=== PATIENT | male | born 1975 | race Caucasian/White ===

== ENCOUNTER 2019-08-19 17:41 | Inpatient (IN) | payer OTHER, MEDICAID, SELFPAY ==
[~2019-08-19] VITALS: Ht 154.9 cm; Wt 62.6 kg
--- NOTE | 2019-08-19 17:41 | NUR ---
[facility] TO ER BED 01
[2019-08-19 17:45] VITALS: BP 116/82
[2019-08-19] MEDS ORDERED: NACL 0.9% 1,000 ML IV SCH (17:57)
[2019-08-19] MEDS ORDERED: ONDANSETRON 4 MG/2 ML VIAL IVP ONE (18:00)
[2019-08-19] MEDS ORDERED: DEXTROSE 50% 50 ML SYR IVP ONE ×2 (18:00→23:46)
[2019-08-19] MEDS ORDERED: GLUCAGON 1 MG VIAL IVP ONE (18:00)
--- NOTE | 2019-08-19 18:00 | NUR ---
BIBA W C/O HYPOGLYCEMIA, FSBS 24 ON SCENE. PT WAS FOUND ALOC BY SISTER, D10 GIVEN IN FIELD. PER EMS, FSBS ANALYTICS CONSULTANT 131. FSBS UPON ARRIVAL TO ED IS 52. ERMD AWARE. PT A & O X4. 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 STATES HE HAS NOT EATEN TODAY BECAUSE HE GETS DIARRHEA RIGHT AFTER HE EATS. PT REPORTS CHRONIC NON BLOODY DIARRHEA X6-7 MONTHS, SO HE IS AFRAID TO EAT BECAUSE "IT GOES RIGHT THROUGH ME". ABDOMEN ROUND, SOFT AND TENDER TO PALPATION. LBM TODAY - DIARRHEA PER PT. BOWEL SOUNDS PRESENT X4. REPORTS WEIGHT LOSS OF APPROX. 30LBS OVER THE LAST 6 MONTHS. PT DENIES FEVER/COUGH/SOB. PT HAS HX OF HEART TRANSPLANT 10 YRS AGO AND IS ON MULTIPLE IMMUNOSUPPRESANTS AT HOME. PT IS TACHYCARDIC 134 AT THIS TIME, STATES HIS BASELINE HR IS ALWAYS BETWEEN 120-130 BPM. 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
--- NOTE | 2019-08-19 18:05 | NUR ---
ERMD AT BEDSIDE EVALUATING PT
[2019-08-19 18:23] LABS: BASOPHILS # (AUTO) 0.1 K/uL (0.00-0.22); BASOPHILS % (AUTO) 0.5 % (0.0-2.0); EOSINOPHILS % (AUTO) 0.1 % (0.0-4.0); HEMATOCRIT 32.7 % (36-52); HEMOGLOBIN 10.5 g/dL (12.0-18.0); LYMPHOCYTES # (AUTO) 0.9 K/uL (2.0-11.5); LYMPHOCYTES % (AUTO) 4.6 % (20.5-51.1); MEAN CORPUSCULAR HEMOGLOBIN 31 pg (27-31); MEAN CORPUSCULAR HGB CONC 32 g/dL (33-37); MEAN CORPUSCULAR VOLUME 97.4 fL (80-94); MONOCYTES # (AUTO) 1.4 K/uL (0.8-1.0); MONOCYTES % (AUTO) 7.1 % (1.7-9.3); NEUTROPHILS # (AUTO) 17.2 K/uL (1.8-7.7); NEUTROPHILS % (AUTO) 87.7 % (42.2-75.2); PLATELET COUNT (AUTO) 209 K/uL (140-450); RED BLOOD CELL COUNT(AUTO) 3.35 MIL/uL (4.20-6.10); RED CELL DISTRIBUTION WIDTH 18.2 % (11.6-13.7); WHITE BLOOD COUNT (AUTO) 19.6 K/uL (4.8-10.8)
[2019-08-19 18:48] LABS: ANION GAP 15.4 (8-16); CARBON DIOXIDE 25.2 mmol/L (21-32); FREE T4 (FREE THYROXINE) 1.47 ng/dL (0.76-1.46); POTASSIUM 3.6 mmol/L (3.5-5.1); THYROID STIMULATING HORMONE 3.48 uIU/mL (0.34-3.74); TOTAL BILIRUBIN 0.8 mg/dL (0.0-1.0)
--- NOTE | 2019-08-19 18:51 | NUR ---
PT PROVIDED WITH SANDWICH, ENCOURAGED HIM TO TRY TO EAT
[2019-08-19] MEDS ORDERED: NACL 0.9% 1,000 ML IV ONE (19:00)
[2019-08-19] MEDS ORDERED: cefTRIAXone 1,000 MG VIAL ONE (19:07)
[2019-08-19] MEDS ORDERED: MORPHINE SULFATE 4 MG/ML SYR IVP ONE (19:20)
--- NOTE | 2019-08-19 19:20 | NUR ---
REPORT GIVEN BY JAYNA SCOTT, TRANSFER OF CARE AT THIS TIME.
--- NOTE | 2019-08-19 19:20 | NUR ---
pt rq 10 mg norco because he typically takes it at home prn for back pain, informed dr. lindsey and he will order him morphine IV. pt aware and ok with this.
--- NOTE | 2019-08-19 19:21 | NUR ---
pt unable to urinate at this time
--- NOTE | 2019-08-19 19:40 | NUR ---
LAB CALLED FOR PT CRITICAL RESULTS-TROPONIN- 0.110. DR INIGUEZ MADE AWARE AND EAN SCOTT
[2019-08-19] MEDS: DEXTROSE 10% 1,000 ML IV SCH ×3 (19:47→22:44)
--- NOTE | 2019-08-19 19:48 | NUR ---
pt taken to ct via nayeli
--- NOTE | 2019-08-19 20:00 | NUR ---
PT RESTING IN BED. EQUAL CHEST RISE AND FALL. PT STATES HIS PAIN IS 7/10. ERMD MADE AWARE. SAFETY MEASURES IN PLACE.
--- NOTE | 2019-08-19 20:40 | NUR ---
ERMD GAVE VERBAL ORDERS TO CHANGE D10 75/HR TO BOLUS AFTER LAST ACCU CHECK WAS 57.
--- NOTE | 2019-08-19 20:41 | NUR ---
STILL UNABLE TO GET URINE FROM PT AT THIS TIME. FRANKLIN MADE AWARE
[2019-08-19] MEDS ORDERED: FLUC200T PO (20:55)
[2019-08-19] MEDS ORDERED: ZYL300 PO (20:56)
[2019-08-19] MEDS ORDERED: HYDR-5092 PO (20:57)
[2019-08-19] MEDS ORDERED: PRO.5 PO (20:58)
[2019-08-19] MEDS ORDERED: FURO-572 PO (21:00)
--- NOTE | 2019-08-19 21:00 | NUR ---
SPOKE WITH PTS SISTER TUSHAR TO GET MED REC.
[2019-08-19] MEDS ORDERED: PRED5TAB7 PO (21:01)
[2019-08-19] MEDS ORDERED: MAGN400T7 PO (21:02)
[2019-08-19] MEDS ORDERED: METF1000 PO (21:03)
[2019-08-19] MEDS ORDERED: AMLO5TAB PO (21:04)
[2019-08-19] MEDS ORDERED: GLIP10TA12 PO (21:05)
[2019-08-19] MEDS ORDERED: FAMO-90 PO (21:06)
[2019-08-19] MEDS ORDERED: CEL250 PO (21:06)
[2019-08-19] MEDS ORDERED: INSU-1331 SC (21:10)
[2019-08-19] MEDS ORDERED: INSU100I28 SQ (21:10)
--- NOTE | 2019-08-19 21:15 | NUR ---
LAB AT BEDSIDE
--- NOTE | 2019-08-19 21:16 | NUR ---
SPOKE WITH ARELIS FROM THE LAB. PT MG IS 0.8. NOTIFY MD CRUZ AND AWARE.PER MD SHE WILL PLACE THE ORDER.
--- NOTE | 2019-08-19 21:46 | NUR ---
URINE COLLECTED, DIPPED AND SENT TO LAB
[2019-08-19 22:05] LABS: APPEARANCE,URINE CLEAR (CLEAR); BILIRUBIN,URINE NEGATIVE (NEGATIVE); BLOOD, URINE NEGATIVE (NEGATIVE); COLOR,URINE YELLOW (YELLOW); LEUKOCYTE ESTERASE ,URINE NEGATIVE (NEGATIVE); NITRITE, URINE NEGATIVE (NEGATIVE); PH,URINE 6.5 (5.0-9.0); UGLUCOSE TRACE (NEGATIVE)
[2019-08-19] MEDS ORDERED: ONDANSETRON 4 MG/2 ML VIAL IVP PRN (22:05)
[2019-08-19] MEDS ORDERED: ACETAMINOPHEN 325 MG TAB PO PRN (22:05)
--- NOTE | 2019-08-19 22:30 | NUR ---
Patient will be admitted to care of [facility]. Admited to TELE. Will go to room 112B. Belongings list completed. Report to SANTIAGO MARSH RN.
[2019-08-19 22:32] LABS: BARBITURATE, URINE NEGATIVE ng/ml (NEG <=200); BENZODIAZEPINE, URINE NEGATIVE ng/mL (NEG <=200); CANNABINOID, URINE POSITIVE ng/mL (NEG <=50); COCAINE, URINE NEGATIVE ng/mL (NEG <=300); OPIATE, URINE POSITIVE ng/mL (NEG <=2000)
[2019-08-19 22:33] LABS: PHENCYCLIDINE SCREEN,URINE NEGATIVE ng/mL (NEG <=25)
[2019-08-19] MEDS: BLOOD GLUCOSE MONITORING 1 DEV DEV FS SCH (22:40)
--- NOTE | 2019-08-19 22:45 | NUR ---
ADMITTED A PATIENT FORM ER VIA GURNEY. PATIENT IS ASLEEP BUT AROUSABLE. DENIES ANY PAIN,CHEST PAIN AND SOB AT THIS TIME. ST ON CARDIAC WITH PAC, HR 110. PT BLOOD SUGAR BEFORE TRANSFER IS 57 PER ER NURSE AND PT WAS GIVEN D50. WILL RE CHECKED PT BLOOD SUGAR AFTER 1 HOUR. STARTED THE IVF ORDERED D10 @ 75 CC/HR. NO SIGN AND SYMPTOMS OF DISTRESS NOTED AT THIS TIME. ORIENTED THE PT TO THE ROOM SETTING AND USE OF CALL LIGHT SYSTEM.CALL LIGHT WITHIN REACH. WILL CONTINUE POC AND MONITORING.
[2019-08-19 22:51] LABS: CHOL/HDL RATIO 2.2 (1-4.5); PHOSPHORUS 3.5 mg/dL (2.5-4.9)
[2019-08-19 22:52] LABS: PROTHROMBIN TIME 14.9 secs (10.8-13.4)
[2019-08-19] MEDS ORDERED: AZITHROMYCIN 500 MG in DEXTROSE 5% 250 ML IV SCH (22:55)
[2019-08-19] MEDS ORDERED: ALLOPURINOL 300 MG TAB PO SCH (22:55)
[2019-08-19 23:06] LABS: MAGNESIUM 0.8 mg/dL (1.8-2.4)
[2019-08-19] MEDS ORDERED: MAG SULF 2000 MG/WATER PREMIX 100 ML IV SCH (23:15)
[2019-08-19] MEDS ORDERED: GLUCAGON 1 MG VIAL IVP PRN (23:50)
--- NOTE | 2019-08-19 23:55 | NUR ---
CHECKED PT BS @ 3828 ITS 57. PT AWAKE, ALERT AND RESPONSIVE. PUSH D50 ORDERED.
[2019-08-20] VITALS (13 sets, daily range): BP systolic 107–137; BP diastolic 69–87
[2019-08-20] MEDS: DEXTROSE 50% 50 ML SYR IVP PRN ×2 (00:15→01:52)
--- NOTE | 2019-08-20 00:15 | NUR ---
TRANSFERRED THE PT TO ICU PER ACLS PROTOCOL AND REPORT GIVEN TO THE RECEIVING RN ANIKET REGARDING THE PATIENT FOR CONTINUITY OF CARE. ALL BELONGINGS RETURNED TO THE PT. LEFT THE PT IN ICU IN STABLE CONDITION A/A/OX4. SIGNING OFF.
--- NOTE | 2019-08-20 00:16 | NUR ---
REPORT RECEIVED FROM TELEMETRY NURSE AT BEDSIDE FROM TRANSFER. PT IN STABLE CONDITION. AAOX4. INTRODUCED SELF TO PT. NO COMPLAINTS OF PAIN. NO SOB ON RA. AFEBRILE@98.3. PT IS AMBULATORY. PT IS FALL RISK BUT AMBULATORY. STANDBY ASSIST. IV SITE L AC 20G SL PATENT AND INTACT. R FA 20G RUNNING D10@90ML/HR PATENT AND INTACT. SKIN WARM, DRY, AND INTACT WITH NO OPEN WOUNDS. BED LOCKED IN LOW POSITION. CALL HERNANDEZ WITHIN REACH. SAFETY PRECAUTION IN PLACE. ALL NEEDS MET AT THIS TIME.
[2019-08-20] MEDS: BLOOD GLUCOSE MONITORING 1 DEV DEV FS SCH ×24 (00:29→22:40)
[2019-08-20] MEDS ORDERED: AZITHROMYCIN 500 MG INJ VIAL IV ONE (00:31)
--- NOTE | 2019-08-20 00:38 | NUR ---
EDMONDITHMYLETICIA HUNG AND RUNNING.
--- NOTE | 2019-08-20 00:42 | NUR ---
BS 91. NO S/S OF HYPOGLYCEMIA.
--- NOTE | 2019-08-20 01:47 | NUR ---
BS 55. D50 GIVEN IVP.
--- NOTE | 2019-08-20 02:45 | NUR ---
BS 112. NO S/S OF HYPOGLYCEMIA.
--- NOTE | 2019-08-20 03:02 | NUR ---
MAG BRADFORD HUNG AND RUNNING BAG 1 OF 2.
--- NOTE | 2019-08-20 03:52 | NUR ---
BS 65. APPLEJUICE WITH SUGAR GIVEN.
--- NOTE | 2019-08-20 04:42 | NUR ---
BS 67. APPLEJUICE WITH SUGAR GIVEN.
[2019-08-20] MEDS ORDERED: MAG SULF 2000 MG/WATER PREMIX 50 ML IV ONE (05:24)
[2019-08-20 05:58] LABS: BASOPHILS # (AUTO) 0.1 K/uL (0.00-0.22); BASOPHILS % (AUTO) 0.7 % (0.0-2.0); EOSINOPHILS # (AUTO) 0.1 K/uL (0-0.4); EOSINOPHILS % (AUTO) 1.1 % (0.0-4.0); HEMATOCRIT 29.8 % (36-52); HEMOGLOBIN 9.8 g/dL (12.0-18.0); LYMPHOCYTES # (AUTO) 1.1 K/uL (2.0-11.5); LYMPHOCYTES % (AUTO) 8.7 % (20.5-51.1); MEAN CORPUSCULAR HEMOGLOBIN 32 pg (27-31); MEAN CORPUSCULAR HGB CONC 33 g/dL (33-37); MONOCYTES # (AUTO) 1.2 K/uL (0.8-1.0); MONOCYTES % (AUTO) 9.1 % (1.7-9.3); NEUTROPHILS # (AUTO) 10.4 K/uL (1.8-7.7); NEUTROPHILS % (AUTO) 80.4 % (42.2-75.2); PLATELET COUNT (AUTO) 185 K/uL (140-450); RED BLOOD CELL COUNT(AUTO) 3.08 MIL/uL (4.20-6.10); RED CELL DISTRIBUTION WIDTH 18.1 % (11.6-13.7); WHITE BLOOD COUNT (AUTO) 12.9 K/uL (4.8-10.8)
--- NOTE | 2019-08-20 06:00 | NUR ---
BS 163. NO S/S OF HYPOGLYCEMIA.
--- NOTE | 2019-08-20 06:40 | NUR ---
BS 124. NO S/S OF HYPOGLYCEMIA.
[2019-08-20 07:03] LABS: ANION GAP 13.4 (8-16); CARBON DIOXIDE 23.4 mmol/L (21-32); CREATININE 0.8 mg/dL (0.6-1.3)
[2019-08-20 07:05] LABS: POTASSIUM 2.8 mmol/L (3.5-5.1)
--- NOTE | 2019-08-20 07:16 | NUR ---
REPORT GIVEN TO AM NURSE AT BEDSIDE. PT IN STABLE CONDITION.
[2019-08-20 07:17] LABS: MAGNESIUM 1.5 mg/dL (1.8-2.4); PHOSPHORUS 2.8 mg/dL (2.5-4.9)
--- NOTE | 2019-08-20 07:25 | NUR ---
RECEIVED REPORT FROM NIGHT NURSE. PT IN STABLE CONDITION, AAOX4, RESPIRATIONS EVEN AND UNLABORED ON ROOM AIR. DENIES PAIN. SKIN INTACT. L AC PATENT AND ASYMPTOMATIC SALINE LOCKED AND R FA 20G PATENT AND ASYMPTOMATIC INFUSING PER ORDER. K+ 2.8 AND MAG 1.5 WILL REPLENISH. STANDARD ISOLATION. SAFETY MEASURES IN PLACE. CALL LIGHT WITHIN REACH. WILL CONTINUE TO MONITOR.
--- NOTE | 2019-08-20 08:35 | NUR ---
DISCHARGE PLANNING: RECEIVED AN ORDER FOR HIGHER LEVEL OF TRANSFER TO [facility] FOR CONTINUITY OF CARE. REFERRAL SENT TO [facility]. WILL FOLLOW UP. Addendum: 08/20/19 at 1040 by Maria Amezcua CM CONTACTED [facility] AT [phone], ABLE TO SPEAK TO IRASEMA. REQUESTED TO BE TRANSFERRED TO [facility]. SHE STATED MELBA IS ON THE PHONE AT THE MOMENT. PROVIDED HER WITH THE MY CONTACT INFO TO HAVE MELBA CALL ME BACK. Addendum: 08/20/19 at 1104 by Maria Amezcua CM RECEIVED A CALL BACK FROM MELBA OF [facility] REGARDING TRANSFER REQUEST. PROVIDED HER WITH ALL THE INFORMATION NEEDED. PROVIDED HER WITH THE CALL PHONE FOR DOC TO DOC CALLS. SHE STATED IT HAS TO BE THE ATTENDING ONLY FOR ICU TRANSFER. PROVIDED HER WITH DR. DEL VALLE'S CONTACT INFO. SHE ALSO STATED THAT ALL [facility] TRANSFER SHOULD HAVE A COVID TESTING. SHE ALSO HAVE SOME COVID SCREENING QUESTIONS LIKE IF PATIENT HAVE WORKED IN A [facility] OR SNF, INFORMED HER THAT I WILL INQUIRE ON THIS AND WILL GIVE HER A CALL BACK. CHARGE NURSE MADE AWARE AND SHE STATED NO. CONTACTED [facility], ABLE TO SPEAK TO VINH. SHE STATED MELBA JUST STPPED OUT FOR BATHROOM BREAK BUT WILL RELAY THE MESSAGE. Addendum: 08/20/19 at 1342 by Maria Amezcua THIS IS A 44 Y/O MALE PATIENT FROM HOME, WHO WAS BIBA DUE TO ALTERED MENTAL STATUS. PAST MEDICAL HISTORY INCLUDE CHF S/P HEART TRANSPLANT 2009 AT [facility]. INITIAL DIAGNOSIS OF HYPOGLYCEMIA. CURRENT LABS INCLUDE WBC 12.9, H/H 9.8/29.8, NA/K 134/2.8, GLU ON ADMISSION 185, 56 AND LATEST 88. ON ROCEPHIN, FLUCONAZOLE, AZITHROMYCIN. ON ROOM AIR, O2 SAT 96. COVID TEST PENDING. URINE AND BLOOD CS PENDING. GI, ID, CARDIO AND PULMO/CRITICAL CARE CONSULTS IN PLACE. DC PLAN TO [facility] FOR CONTINUITY OF CARE. RECEIVED A CALL FROM ALEXIS OF [facility] TRANSFER CENTER, STATING THAT DR. MCCLELLAND IS ABLE TO ACCEPT THE PATIENT PENDING COVID TEST RESULTS. DR RAYMUNDO MADE AWARE.
[2019-08-20] MEDS ORDERED: DOCUSATE SODIUM 100 MG GELCAP PO SCH (09:00)
[2019-08-20] MEDS ORDERED: FLUCONAZOLE 100 MG TAB PO SCH ×2 (09:00)
[2019-08-20] MEDS ORDERED: predniSONE 5 MG TAB PO SCH (09:00)
[2019-08-20] MEDS ORDERED: amLODIPine 5 MG TAB PO SCH (09:00)
[2019-08-20] MEDS: MYCOPHENOLATE 250 MG CAP PO SCH ×2 (09:00→21:00)
[2019-08-20] MEDS ORDERED: TACROLIMUS 0.5 MG CAP PO SCH (09:00)
--- NOTE | 2019-08-20 09:13 | NUR ---
PATIENT HAS BEEN SCREENED AND CATEGORIZED HIGH NUTRITION RISK. PATIENT WILL BE SEEN WITHIN 1-2 DAYS OF ADMISSION. 08/20/19-08/21/[address]
--- NOTE | 2019-08-20 09:18 | NUR ---
MEDICATIONS ADMINISTERED PER ORDER, PT TOLERATED WELL. DENIES PAIN. WILL CONTINUE TO MONITOR.
[2019-08-20] MEDS: FAMOTIDINE 20 MG TAB PO SCH ×2 (09:19→20:12)
[2019-08-20] MEDS: MAGNESIUM OXIDE 400 MG TAB PO SCH ×2 (09:20→20:12)
--- NOTE | 2019-08-20 10:38 | NUR ---
BLOOD SUGAR 66, APPLE JUICE WITH 2 PACKS OF SUGAR GIVEN. WILL REASSESS IN 1 HOUR.
[2019-08-20] MEDS ORDERED: MAG SULF 2000 MG/WATER PREMIX 100 ML IV SCH (11:00)
[2019-08-20] MEDS ORDERED: POTASSIUM CHLORIDE 10 MEQ TABER PO SCH (11:00)
[2019-08-20] MEDS ORDERED: POTASSIUM CHLORIDE 40 MEQ, LIDOCAINE MPF 1% 25 MG in NACL 0.9% 250 ML IV SCH ×2 (11:00→16:00)
[2019-08-20] MEDS ORDERED: FUROSEMIDE 40 MG/4 ML VIAL IVP SCH (11:00)
[2019-08-20] MEDS: DEXTROSE 10% 1,000 ML IV SCH (11:09)
[2019-08-20] MEDS: HYDROcodone/APAP 7.5/325 MG 1 TAB PO PRN ×2 (11:44→21:39)
--- NOTE | 2019-08-20 11:50 | NUR ---
ECHOCARDIOGRAM PENDING DUE TO R/O COVID.
--- NOTE | 2019-08-20 12:52 | NUR ---
BLOOD GLUCOSE 119, PT IN STABLE CONDITION, NO RESPIRATORY DISTRESS NOTED. PT STATES PAIN HAS SUBSIDED. DENIES HAVING APPETITE. WILL CONTINUE TO MONITOR.
--- NOTE | 2019-08-20 13:42 | NUR ---
DEPUTY HEAD NOTE: Basic Screen: Yes High Risk DC Screen [place]: N/A Prior ADL Independent Current Home Health Name/Tel: N/A Current DME/02 Name/Tel: N/A Current Hospice Name/Tel: N/A Current Dialysis Name/Tel: N/A Advance Directive No Physician Orders for Life Sustaining Treatment Form No Patient/Family Have Educational Needs No Discipline: Case Mgt/Social Svcs Tentative Discharge Plan/Destination: No Needs Identified Will require assistance post discharge: No Referred to [facility] Recessed Vat: No Tentative Discharge Plan Summary: PATIENT IS A 44-YEAR-OLD MALE ADMITTED FOR HYPOGLYCEMIA. PATIENT HAS PMHX OF CHF. PATIENT WAS ADMITTED FROM HOME. DUE TO MEDICAL CONDITION, SW WAS UNABLE TO MEET WITH PATIENT AT BEDSIDE. SW CONSULTED WITH PHYSICIAN WHO STATED THAT THERE WERE NO SOCIAL ISSUES PRESENT AT THIS TIME. PHYSICIAN STATED THAT PATIENT'S SISTER HAS BEEN IN CONTACT WITH HOSPITAL BUT HAS NOT PROVIDED HER CONTACT INFORMATION. TENTATIVE DISCHARGE PLAN IS FOR PATIENT TO RETURN HOME. NO FURTHER NEEDS IDENTIFIED. Signature: ROSA PAGE Date: Aug 20, 2019 Time: 13:39
--- NOTE | 2019-08-20 16:12 | NUR ---
08/20/19 RD INITIAL ASSESSMENT COMPLETED PLEASE REFER TO NUTRITION ASSESSMENT UNDER CARE ACTIVITY FOR ESTIMATED NUTRITIONAL NEEDS. 1. CONTINUE CCHO 60GM DIET TOLERATED 2. RECOMMEND GLUCERNA TID 3. ENCOURAGE TO INCREASE PO INTAKE 4. RD TO FOLLOW-UP 2-3 DAYS, HIGH RISK WEI MONSON, RD
--- NOTE | 2019-08-20 16:13 | NUR ---
TEMP 97.9, PT DENIES PAIN. RESPIRATIONS EVEN AND UNLABORED ON ROOM AIR. WILL CONTINUE TO MONITOR CLOSELY.
--- NOTE | 2019-08-20 17:48 | NUR ---
RECEIVED CALL FROM LAB, PT COVID (-)
--- NOTE | 2019-08-20 18:31 | NUR ---
Called [facility] transfer center to report negative COVID and request a bed. Spoke to Tracy will look into the record.
--- NOTE | 2019-08-20 18:40 | NUR ---
BLOOD SUGAR CHECKED 193. NO DISTRESS NOTED. RESPIRATIONS EVEN AND UNLABORED ON ROOM AIR. SAFETY MEASURES IN PLACE. WILL CONTINUE TO MONITOR.
[2019-08-20] MEDS ORDERED: [UNRECOGNIZED DRUG - CODE] IV (18:47)
[2019-08-20] MEDS ORDERED: HEPA500056 SUBQ (18:47)
[2019-08-20] MEDS ORDERED: GLUC1VIA IVP (18:47)
[2019-08-20] MEDS ORDERED: GLUC-805 FS (18:47)
[2019-08-20] MEDS ORDERED: FLUC100T1 PO (18:47)
[2019-08-20] MEDS ORDERED: [UNRECOGNIZED DRUG - CODE] IV (18:47)
[2019-08-20] MEDS ORDERED: ROC2I IJ (18:47)
[2019-08-20] MEDS ORDERED: D50SYR IVP (18:47)
--- NOTE | 2019-08-20 19:25 | NUR ---
REPORT GIVEN TO NIGHT NURSE FOR CONTINUITY OF CARE.
--- NOTE | 2019-08-20 19:30 | NUR ---
RECEIVED PT FROM JUDIT RN, PT ON RM AIR A&OX4, PT COMPLAINS OF MILD PAIN BUT SAYS ITS TOLERABLE AT THIS TIME, LUNG SOUNDS CLEAR, S1 AND S2 HEART SOUNDS HEARD, BOWEL SOUNDS ACTIVE, PULSES PALPABLE UPPER AND LOWER EXTREMITIES, NO SIGNS OF DISTRESS OBSERVED, PT RESTING IN BED WATCHING TV, SAFETY PROTOCOL IN PLACE, WILL CONTINUE TO MONITOR PT
--- NOTE | 2019-08-20 19:45 | NUR ---
PT BLOOD SUGAR 195, PT HAD 1 LIQUID LIGHT BROWN BM WILL CONTINUE TO MONITOR
[2019-08-20] MEDS ORDERED: cefTRIAXone 2,000 MG in DEXTROSE 5% 100 ML IV SCH (20:00)
--- NOTE | 2019-08-20 20:15 | NUR ---
SPOKE WITH DOROTHY FROM [facility] TRANSFER [facility]. BED AVAILABLE FOR TONIGHT. ACCEPTING PHYSICIAN DR.L. MARTI. PATIENT WILL GO TO [id number] UNIT ROOM 5. RESIDENT MADE AWARE. WILL CONTACT [facility] FOR TRANSPORT.
[2019-08-20 20:57] LABS: APPEARANCE,URINE CLEAR (CLEAR); BILIRUBIN,URINE NEGATIVE (NEGATIVE); BLOOD, URINE NEGATIVE (NEGATIVE); COLOR,URINE YELLOW (YELLOW); LEUKOCYTE ESTERASE ,URINE NEGATIVE (NEGATIVE); NITRITE, URINE NEGATIVE (NEGATIVE); PH,URINE 5.5 (5.0-9.0); UGLUCOSE NEGATIVE (NEGATIVE)
--- NOTE | 2019-08-20 21:00 | NUR ---
[facility] CALLED, PICKUP FOR TRANSFER WILL BE IN 1.5 HOURS. RN AWARE AND PATIENT AWARE.
--- NOTE | 2019-08-20 22:09 | NUR ---
GEORGE CORTEZ SPOKE WITH SONG SCOTT, WHO IS RECEIVING PT AND GAVE HER REPORT ON PT
--- NOTE | 2019-08-20 22:32 | NUR ---
[facility] CALLED PICKUP WILL BE DELAYED ABOUT 1HR
--- NOTE | 2019-08-20 22:55 | NUR ---
[facility] ONE HOUR.
--- NOTE | 2019-08-20 23:55 | NUR ---
[facility] PICKED UP PT, TO TRANSFER TO [place], PT VITALS STABLE AND NO SIGNS OF DISTRESS AT TRANSFER. SISTER NOTIFIED OF PT TRANSFER Addendum: 08/21/19 at 0238 by Keegan Donnelly RN PT LEFT WITH BELONGINGS
[2019-08-21] MEDS ORDERED: PIPERACILLIN/TAZOBACTAM 3.375 GM in DEXTROSE 5% 50 ML IV SCH ×2
[2019-08-21 08:10] LABS: FOLIC ACID 6.8 ng/mL (>3.0)
[2019-08-22 06:38] LABS: TACROLIMUS 9.3 ng/mL (2.0-20.0)
== END 2019-08-20 23:55 | disposition short-term general hospital (02) | DRG 871 ==
LOC: MED 17:41 → MTU 22:03 → EEVIPCON 22:03 → MTU 22:26 → MIC 08-20 00:49
PROVIDERS: ADMIT General Practice; ATTEND General Practice
DX: A41.9 Sepsis, unspecified organism (principal); I50.43 Acute on chronic combined systolic (congestive) and diastolic (congestive) heart failure; I21.A1 Myocardial infarction type 2; E87.1 Hypo-osmolality and hyponatremia; I42.9 Cardiomyopathy, unspecified; E44.0 Moderate protein-calorie malnutrition; K52.9 Noninfective gastroenteritis and colitis, unspecified; R65.20 Severe sepsis without septic shock; D64.9 Anemia, unspecified; E83.42 Hypomagnesemia; E87.6 Hypokalemia; E05.90 Thyrotoxicosis, unspecified without thyrotoxic crisis or storm; Z68.26 Body mass index [BMI] 26.0-26.9, adult; Z88.8 Allergy status to other drugs, medicaments and biological substances; Z91.013 Allergy to seafood; E11.649 Type 2 diabetes mellitus with hypoglycemia without coma; Z80.8 Family history of malignant neoplasm of other organs or systems; Z20.828 Contact with and (suspected) exposure to other viral communicable diseases
CPT/HCPCS: 36415; 71045; 80048; 80053; 80305; 81003; 82140; 82150; 82607; 82728; 82746; 82948; 83036; 83540; 83605; 83690; 83735; 83880; 84100; 84439; 84443; 84484; 84681; 85025; 85045; 85610; 85730; 87040; 87070; 87086; 87804; 93005; 96361; 96365; 96375; 99285; J0456; J0696; J1610; J1644; J1940; J2001; J2270; J2405; J2543; J3475; J3480; J7030; J7060; J7507; J7512; J7517; Q0092; Q9967; U0003-CS